=== PATIENT | female | born 2000 | race Caucasian/White ===

== ENCOUNTER 2018-10-24 17:30 | Inpatient (IN) | payer MEDICAID ==
[2018-10-24] MEDS ORDERED: IBUPROFEN 600 MG TAB PO (18:30)
[2018-10-24] MEDS ORDERED: MISOPROSTOL 200 MCG TAB PR (18:30)
[2018-10-24] MEDS ORDERED: BUTORPHANOL 2 MG INJ IV (18:30)
[2018-10-24] MEDS ORDERED: LIDOCAINE 1% (MPF) 30 ML INJ INJ (18:30)
[2018-10-24] MEDS ORDERED: OXYTOCIN 30 UNITS/LR 500 ML IV (18:30)
[2018-10-24] MEDS ORDERED: CARBOPROST 250 MCG INJ IM (18:30)
[2018-10-24 18:33] LABS: ADD MAN DIFF? NO
[2018-10-24 18:37] LABS: BASOPHILS % 0.2 % (0.0-2.0); EOSINOPHILS % 0.5 % (0.0-7.0); HEMATOCRIT 33.5 % (37.0-47.0); HEMOGLOBIN 10.6 g/dl (12.0-16.0); LYMPHOCYTES # 1.6 10^3/ul (0.8-2.9); LYMPHOCYTES % 19.1 % (18.0-55.0); MEAN CORPUSCULAR HEMOGLOBIN 27.5 pg (29.0-33.0); MEAN CORPUSCULAR HGB CONC 31.6 g/dl (32.0-37.0); MEAN PLATELET VOLUME 11.2 fl (7.4-10.4); MONOCYTE # 0.6 10^3/ul (0.3-0.9); MONOCYTES % 6.8 % (0.0-13.0); NEUTROPHIL # 5.9 10^3/ul (1.6-7.5); NEUTROPHILS % 72.9 % (30.0-74.0); PLATELET COUNT 228 10^3/UL (140-415); RED BLOOD COUNT 3.85 10^6/ul (4.20-5.40); RED CELL DISTRIBUTION WIDTH 14.9 % (11.5-14.5)
[2018-10-24 18:37] LABS: WHITE BLOOD COUNT 8.1 10^3/ul (4.8-10.8)
[2018-10-24] MEDS: LACTATED RINGER'S 1,000 ML IV ×2 (18:43→23:27)
[2018-10-24 18:56] LABS: INR 0.92; PROTIME 12.4 Sec (11.9-14.9)
[2018-10-24 18:57] LABS: PARTIAL THROMBOPLASTIN TIME 29.4 Sec (23.0-35.0)
[2018-10-24 19:05] LABS: ADD UMIC YES; UR ASCORBIC ACID NEGATIVE (NEGATIVE); UR BILIRUBIN (Dip) NEGATIVE (NEGATIVE); UR BLOOD (Dip) NEGATIVE (NEGATIVE); UR CLARITY CLEAR (CLEAR); UR COLOR STRAW (YELLOW); UR GLUCOSE (Dip) NEGATIVE (NEGATIVE); UR KETONES (Dip) NEGATIVE (NEGATIVE); UR LEUKOCYTE ESTERASE (Dip) 1+ Leu/ul (NEGATIVE); UR NITRITE (Dip) NEGATIVE (NEGATIVE); UR RBC 0 /HPF (0-5); UR SPECIFIC GRAVITY (Dip) 1.008 (1.003-1.030); UR TOTAL PROTEIN (Dip) NEGATIVE (NEGATIVE); UR UROBILINOGEN (Dip) NEGATIVE (NEGATIVE); UR WBC 3 /HPF (0-5)
[2018-10-24 19:25] LABS: HEPATITIS B SURFACE ANTIGEN NEGATIVE (NEGATIVE)
[2018-10-24 20:32] LABS: ALANINE AMINOTRANSFERASE 7 IU/L (13-69); ALBUMIN 3.5 g/dl (3.3-4.9); ALKALINE PHOSPHATASE 185 IU/L (42-121); ANION GAP 10 (5-13); ASPARTATE AMINO TRANSFERASE 24 IU/L (15-46); BILIRUBIN,INDIRECT 0.3 mg/dl (0-1.1); BILIRUBIN,TOTAL 0.3 mg/dl (0.2-1.3); BLOOD UREA NITROGEN 12 mg/dl (7-20); CALCIUM 9.2 mg/dl (8.4-10.2); CARBON DIOXIDE 19 mmol/L (21-31); CHLORIDE 108 mmol/L (97-110); CREATININE 0.47 mg/dl (0.44-1.00); Estimated GFR > 60 mL/min (>60); GLUCOSE 102 mg/dl (70-220); POTASSIUM 4.2 mmol/L (3.5-5.1); SODIUM 137 mmol/L (135-144)
[2018-10-24] MEDS: MISOPROSTOL 50 MCG CAPSULE PO (20:54)
[2018-10-24 22:29] LABS: RAPID PLASMA REAGIN NONREACTIVE (NR)
[2018-10-25] MEDS: MISOPROSTOL 50 MCG CAPSULE PO ×4 (00:59→16:58)
[2018-10-25] MEDS: LACTATED RINGER'S 1,000 ML IV ×3 (08:39→16:59)
[2018-10-25] MEDS ORDERED: FENTAnyl 2MCG/ML-ROPIV 0.2% 100 ML (12:39)
[2018-10-25] MEDS ORDERED: DIPHENHYDRAMINE 50 MG INJ IV ×2 (14:30→23:30)
[2018-10-25] MEDS ORDERED: NALOXONE (0.4 MG/ML) INJ IV (14:30)
[2018-10-25] MEDS ORDERED: ONDANSETRON 4 MG INJ IV ×2 (14:30→23:30)
[2018-10-25] MEDS ORDERED: FENTAnyl 2MCG/ML-ROPIV 0.2% 100 ML BAG EPI (14:30)
[2018-10-25] MEDS ORDERED: MINERAL OIL LIGHT 10 ML VIAL (20:30)
[2018-10-25] MEDS: OXYTOCIN 30 UNITS/LR 500 ML IV ×2 (21:49→22:02)
[2018-10-25] MEDS: METHYLERGONOVINE 0.2 MG INJ IM (21:58)
[2018-10-25] MEDS ORDERED: DEXTROSE 5%-LR 1,000 ML IV (23:24)
[2018-10-25] MEDS ORDERED: ZOLPIDEM 5 MG TAB PO (23:30)
[2018-10-25] MEDS ORDERED: CARBOPROST 250 MCG INJ IM (23:30)
[2018-10-25] MEDS ORDERED: LANOLIN HPA 1 PKT TOP (23:30)
[2018-10-25] MEDS ORDERED: DIBUCAINE 1% 30 GM OINT TOP (23:30)
[2018-10-25] MEDS ORDERED: SENNA/DOCUSATE NA (8.6MG/50MG) TAB PO (23:30)
[2018-10-25] MEDS ORDERED: OXYCODONE/ASPIRIN (4.88/325) TAB PO (23:30)
[2018-10-25] MEDS ORDERED: MISOPROSTOL 200 MCG TAB PR (23:30)
[2018-10-25] MEDS ORDERED: METHYLERGONOVINE 0.2 MG INJ IM (23:30)
[2018-10-25] MEDS ORDERED: ACETAMINOPHEN 325 MG TAB PO (23:30)
[2018-10-25] MEDS ORDERED: OXYTOCIN 30 UNITS/LR 500 ML IV (23:30)
[2018-10-26] MEDS: WITCH HAZEL/GLYCERIN PAD PR (01:06)
[2018-10-26] MEDS: IBUPROFEN 600 MG TAB PO ×6 (01:06→23:43)
[2018-10-26] MEDS: BENZOCAINE 20% 56 ML SPRAY TOP (01:07)
[2018-10-26 08:29] LABS: ADD MAN DIFF? NO
[2018-10-26 08:35] LABS: WHITE BLOOD COUNT 14.9 10^3/ul (4.8-10.8)
[2018-10-26 08:35] LABS: BASOPHIL # 0.1 10^3/ul (0.0-0.1); BASOPHILS % 0.3 % (0.0-2.0); EOSINOPHILS # 0.1 10^3/ul (0.0-0.5); EOSINOPHILS % 0.4 % (0.0-7.0); HEMATOCRIT 31.3 % (37.0-47.0); LYMPHOCYTES # 2.2 10^3/ul (0.8-2.9); LYMPHOCYTES % 14.5 % (18.0-55.0); MEAN CORPUSCULAR HEMOGLOBIN 27.9 pg (29.0-33.0); MEAN CORPUSCULAR HGB CONC 31.9 g/dl (32.0-37.0); MEAN CORPUSCULAR VOLUME 87.4 fl (72.0-104.0); MEAN PLATELET VOLUME 11.5 fl (7.4-10.4); MONOCYTE # 1.2 10^3/ul (0.3-0.9); NEUTROPHIL # 11.4 10^3/ul (1.6-7.5); NEUTROPHILS % 76.3 % (30.0-74.0); PLATELET COUNT 206 10^3/UL (140-415); RED BLOOD COUNT 3.58 10^6/ul (4.20-5.40); RED CELL DISTRIBUTION WIDTH 15.4 % (11.5-14.5)
[2018-10-26] MEDS: LACTATED RINGER'S 1,000 ML IV* ×4 (13:12→23:24)
[2018-10-26 21:50] LABS: ADD UMIC YES; UR ASCORBIC ACID 20 mg/dL (NEGATIVE); UR BILIRUBIN (Dip) NEGATIVE (NEGATIVE); UR BLOOD (Dip) 2+ mg/dL (NEGATIVE); UR CLARITY CLEAR (CLEAR); UR COLOR YELLOW (YELLOW); UR GLUCOSE (Dip) NEGATIVE (NEGATIVE); UR KETONES (Dip) NEGATIVE (NEGATIVE); UR LEUKOCYTE ESTERASE (Dip) TRACE Leu/ul (NEGATIVE); UR NITRITE (Dip) NEGATIVE (NEGATIVE); UR RBC 33 /HPF (0-5); UR SPECIFIC GRAVITY (Dip) 1.013 (1.003-1.030); UR TOTAL PROTEIN (Dip) NEGATIVE (NEGATIVE); UR UROBILINOGEN (Dip) NEGATIVE (NEGATIVE); UR WBC 9 /HPF (0-5)
[2018-10-27] MEDS: IBUPROFEN 600 MG TAB PO ×2 (05:31→12:56)
[2018-10-27] MEDS: DIPHTH/TET/ACEL PERTUSS (ADULT) 0.5 ML VIAL IM* (08:01)
[2018-10-27 08:03] LABS: ADD MAN DIFF? NO
[2018-10-27 08:06] LABS: WHITE BLOOD COUNT 11.2 10^3/ul (4.8-10.8)
[2018-10-27 08:06] LABS: BASOPHILS % 0.3 % (0.0-2.0); EOSINOPHILS # 0.1 10^3/ul (0.0-0.5); EOSINOPHILS % 0.9 % (0.0-7.0); HEMATOCRIT 29.7 % (37.0-47.0); HEMOGLOBIN 9.5 g/dl (12.0-16.0); LYMPHOCYTES # 1.8 10^3/ul (0.8-2.9); LYMPHOCYTES % 16.1 % (18.0-55.0); MEAN CORPUSCULAR VOLUME 87.6 fl (72.0-104.0); MEAN PLATELET VOLUME 11.2 fl (7.4-10.4); MONOCYTE # 0.6 10^3/ul (0.3-0.9); MONOCYTES % 5.4 % (0.0-13.0); NEUTROPHIL # 8.6 10^3/ul (1.6-7.5); NEUTROPHILS % 76.8 % (30.0-74.0); PLATELET COUNT 177 10^3/UL (140-415); RED BLOOD COUNT 3.39 10^6/ul (4.20-5.40); RED CELL DISTRIBUTION WIDTH 15.5 % (11.5-14.5)
[2018-10-27] MEDS ORDERED: MEASLES,MUMPS,RUBELLA VACCINE INJ SC* (09:00)
== END 2018-10-27 14:39 | disposition home or self-care (01) | DRG 807 ==
LOC: PP1 10-25 23:56 → L-D 17:30
PROC: 10E0XZZ Delivery of Products of Conception, External Approach (ICD-10-PCS; principal; 2018-10-25)
PROC: 0KQM0ZZ Repair Perineum Muscle, Open Approach (ICD-10-PCS; 2018-10-25)
DX: O70.1 Second degree perineal laceration during delivery (principal); Z37.0 Single live birth; Z3A.40 40 weeks gestation of pregnancy
CPT/HCPCS: 62319; 76815; 80053; 81001; 84560; 85025; 85610; 85730; 86592; 86850; 86900; 86901; 87086; 87340